=== PATIENT | male | born 1970 | race Caucasian/White ===

== ENCOUNTER 2017-05-13 10:31 | Emergency (ER) | payer OTHER ==
--- NOTE | 2017-05-13 11:09 | ED ---
General Adult HPI - General Chief complaint: Extremity Problem,Nontraumatic Stated complaint: Left foot swollen Time Seen by Provider: 05/13/17 10:40 Source: patient, RN notes reviewed Mode of arrival: ambulatory Limitations: no limitations - History of Present Illness Initial comments: Patient's a 46-year-old male who presents emergency room today with a chief complaint of pain to the left foot. This that is also swollen. She also missed a few days ago. Does admit that both in the back of his left heel. He does not that he had problems partial detail with Achilles tendon years ago and it reminded him of similar type pain. States he began using crutches. He states that is also noticed some pain down to the left great toe. He is worried that there is a family history of gout thoughts that this could be a possibility. Admits some pain to the arch of the left foot underneath. He denies any injury or any trauma or any other complaints or symptoms. Patient denies any recent fever, chills, shortness of breath, chest pain, back pain, abdominal pain, nausea or vomiting, numbness or tingling, dysuria or hematuria, constipation or diarrhea, headaches or visual changes, or any other complaints. - Related Data Home Medications Medication Instructions Recorded Confirmed Ibuprofen [Motrin] 800 mg PO Q6H PRN 05/13/17 05/13/17 Previous Rx's Medication Instructions Recorded Hydrocodone/Acetaminophen [Hardwick 1 each PO Q6HR PRN #10 tab 05/13/17 5-325] Allergies Allergy/AdvReac Type Severity Reaction Status Date / Time No Known Allergies Allergy Verified 05/13/17 10:41 Review of Systems ROS Statement: Those systems with pertinent positive or pertinent negative responses have been documented in the HPI. ROS Other: All systems not noted in ROS Statement are negative. Past Medical History Past Medical History: Atrial Fibrillation History of Any Multi-Drug Resistant Organisms: None Reported Past Surgical History: Hernia Repair Past Psychological History: No Psychological Hx Reported Smoking Status: Former smoker Past Alcohol Use History: Occasional Past Drug Use History: Marijuana General Exam - General Exam Comments Initial Comments: General: The patient is awake and alert, in no distress, and does not appear acutely ill. Neck: The neck is supple, there is no tenderness or JVD. Cardiovascular: There is a regular rate and rhythm. No murmur, rub or gallop is appreciated. Respiratory: Lungs are clear to auscultation, respirations are non-labored, breath sounds are equal. No wheezes, stridor, rales, or rhonchi. Musculoskeletal: Patient does have normal appearance of the left foot no signs swelling. No redness. No times the posterior aspect of the left Achilles. Negative Lopez's test. Sensations are intact pulses equal bilaterally 2+. Patient does have tenderness to the first digit of the left foot. There is no redness or swelling of refill less than 2 seconds. Mildly tender over the anterior aspect of left ankle. Strength 5/5. Neurological: A&O x 3. CN II-XII intact, There are no obvious motor or sensory deficits. Coordination appears grossly intact. Speech is normal. Skin: Skin is warm and dry and no rashes or lesions are noted. Psychiatric: Normal mood and affect. Limitations: no limitations Course Vital Signs 05/13/17 10:34 Temperature 97 F L Pulse Rate 88 Respiratory 16 Rate Blood Pressure 153/70 O2 Sat by Pulse 100 Oximetry Medical Decision Making - Medical Decision Making Case discussed in detail with attending physician Dr. Rodriguez. Patient reexamined at this time shows no signs of distress resting comfortably. No evidence of infection. Patient's x-rays negative. Uric acid 7.3. Patient advised to continue with his crutches and limit the use of the left ankle to follow-up the orthopedics in the next 2 days. Advised to continue ice elevate the affected area and use anti-inflammatories. Patient states had no relief the anti-inflammatories will be given a small prescription of pain medication go home with. Advised return for any other concerns. - Lab Data Lab Results 05/13/17 Range/Units 10:53 Uric Acid 7.3 (3.5-8.5) mg/dL Disposition Clinical Impression: Foot pain Disposition: HOME SELF-CARE Condition: Good Instructions: Arthralgia (ED) Additional Instructions: Please use medication as discussed. Please follow-up with orthopedic/family doctor in the next 2 days of symptoms have not improved. Please return to emergency room if the symptoms increase or worsen or for any other concerns. Prescriptions: Hydrocodone/Acetaminophen [Hardwick 5-325] 1 each PO Q6HR PRN #10 tab PRN Reason: Pain Referrals: Anh Yi MD [Primary Care Provider] - 1-2 days Zieger,Mohinder, MD [REFERRING] - 1-2 days Time of Disposition: 12:00
--- NOTE | 2017-05-13 11:10 | XR ---
EXAMINATION TYPE: XR foot complete LT DATE OF EXAM: 05/13/2017 COMPARISON: NONE HISTORY: 46-year-old male with left foot pain TECHNIQUE: 3 views FINDINGS: There is moderate midfoot soft tissue swelling. No acute fracture, subluxation, or dislocation is see n. Corticated ossific density projecting near the distal fibula suggests sequela of remote injury. IMPRESSION: Moderate midfoot soft tissue swelling. No acute osseous abnormality seen.
[2017-05-13 12:13] VITALS: BP 125/69; PULSE 89; RESP 18; TEMP 98.1
== END 2017-05-13 12:13 | disposition home or self-care (01) ==
LOC: EC 10:31
DX: M79.672 Pain in left foot (principal); M79.675 Pain in left toe(s); Z87.891 Personal history of nicotine dependence; Z82.69 Family history of other diseases of the musculoskeletal system and connective tissue
CPT/HCPCS: 36415; 84550; 99283

== ENCOUNTER → 2018-07-11 | Outpatient (CLI) | payer OTHER ==
--- NOTE | 2018-07-14 07:20 | MR ---
EXAMINATION TYPE: MR shoulder RT wo con DATE OF EXAM: 07/11/2018 COMPARISON: Outside radiographs 07/03/2018 HISTORY: 47-year-old male Right shoulder pain TECHNIQUE: Multiplanar, multisequence imaging of the right shoulder is performed without contrast. FINDINGS: There is focal fluid signal along the intracapsular portion of the long head biceps tendon. The extra capsular portion remains a peripherally situated along the bicipital groove. Heterogeneous signal of the subscapularis tendon with a small partial thickness tear of the superior third tendon fibers. The majority of the tendon remains intact. Mild/moderate degenerative joint space narrowing with marginal spurring at the acromioclavicular join t. There is subchondral marrow signal change. Heterogeneous signal of both the supraspinatus and infraspinatus tendons with mild thickening of the overlying subacromial/subdeltoid bursa and mild bursal sided fraying of the supraspinatus tendon and some undersurface articular sided fraying at the junction of the supraspinatus and infraspinatus tend ons. No high-grade partial or full-thickness tear. Reactive cystic change at the greater tuberosity. No atrophy of the rotator cuff musculature. Evaluation of the glenohumeral joint shows moderate diffuse irregular cartilage loss especially along the superior to mid humeral head articular surface where near full-thickness loss is present, for ex ample, refer to coronal images 12 through 14. There is a small joint effusion with a 1.2 x 1.6 cm loose body in the subcoracoid recess. There is a small tear of the superior posterior labrum extending from the biceps anchor with a tiny 4 mm paralabral cyst. Additional tears of the inferior glenoid with elongated paralabral cyst measurin g 5.8 x 1.5 mm and the second one measuring 8 mm. Prominent subchondral cystic change along the anter ior-inferior aspect of the glenoid. No Hill-Sachs deformity or os acromiale. Right marrow hyperplasia is present and can be seen in setti ng of anemia, obesity, smoking, and chronic disease. IMPRESSION: 1. Moderate overall glenohumeral joint osteoarthrosis. There are more severe areas of cartilage loss along the superior to mid humeral head, axial images 12 through 15. There is also a 1.5 cm loose body in the subcoracoid recess. 2. SLAP tear and interstitial tear extending into the intracapsular portion of the long head biceps t endon. Labral tear also involves the inferior aspect of the glenoid with small paralabral cysts. 3. Diffuse rotator cuff tendinosis with mild bursal sided fraying of the supraspinatus tendon and kwame e articular sided fraying at the junction of the supraspinatus and infraspinatus tendons. No high-gra de partial or full-thickness rotator cuff tear. 4. Small partial thickness tear of the superior most subscapularis tendon fibers. No rotator cuff mus carlos atrophy. 5. [id number] AC joint OA.
== END ==
LOC: RADMRIMAIN 06:58
PROVIDERS: ATTEND Orthopaedic Surgery
DX: M19.011 Primary osteoarthritis, right shoulder (principal); S43.431A Superior glenoid labrum lesion of right shoulder, initial encounter; M75.101 Unspecified rotator cuff tear or rupture of right shoulder, not specified as traumatic; S46.811A Strain of other muscles, fascia and tendons at shoulder and upper arm level, right arm, initial encounter

== ENCOUNTER → 2021-01-06 | Outpatient (CLI) | payer OTHER ==
--- NOTE | 2021-01-06 07:44 | US ---
EXAMINATION TYPE: US groin LT DATE OF EXAM: 01/06/2021 COMPARISON: NONE CLINICAL HISTORY: K40.91 Unilateral inguinal hernia. Patient had lt groin hernia at 11 yrs old with s urgical repair, he is having left groin pain with small palpable now, no injury Soft tissue scan of left groin with and without valsalva produces no obvious herniation. Two, normal appearing lymph nodes were seen at area of concern with the largest measuring 1.5 x 0.8 x 0.4cm IMPRESSION: No definite sonographic abnormality of the left groin. Clinical follow-up is recommended.
== END | disposition home or self-care (01) ==
LOC: RADUSWWP 06:57
PROVIDERS: ATTEND Family Medicine
DX: K40.91 Unilateral inguinal hernia, without obstruction or gangrene, recurrent (principal)

== ENCOUNTER → 2022-06-24 | Outpatient (CLI) | payer OTHER ==
--- NOTE | 2022-06-24 09:46 | CT ---
EXAMINATION TYPE: CT sinus w con DATE OF EXAM: 06/24/2022 COMPARISON: HISTORY: Chronic maxillary sinusitis. Pt also c/o palpable, growing bump LT side of nose, marked by Luana Craft. C/o ear ringing CT DLP: 558 mGycm Automated exposure control for dose reduction was used. CONTRAST: CT scan of the facial bones is performed with IV Contrast, patient injected with 70 mL of Isovue 300. TECHNIQUE: CT scan of the sinuses is performed without contrast, axial images are obtained, coronal r eformatted images are also reviewed. FINDINGS: There is an 8 mm vague density corresponding to the area of palpable abnormality adjacent a nterior margin of the left maxillary sinus. Somewhat nondescript. Hypoaeration aeration of the mastoid air cells compatible with chronic mastoiditis. There is evidence of mild mucosal thickening involving the ethmoid air cells, maxillary sinuses, sphenoid sinus, and f rontal sinus with no evidence of air-fluid levels. Ostiomeatal complexes patent bilaterally. Small mu cous retention cyst or polyp within the inferior right maxillary sinus. Nasal septal deviation. Intracranial structures are symmetric. Visualized parotid glands have a normal appearance. Oropharynx and nasopharynx symmetric. Orbits have a normal appearance. IMPRESSION: 1. Mild to moderate chronic pansinusitis. 2. Vague 8 mm soft tissue subcutaneous density corresponds to the area of palpable abnormality. Findi ngs could be postinflammatory. Small neoplastic nodule not entirely excluded. Correlation with short- term ultrasound obtained lesion changes in size. 3. Chronic mastoiditis.
== END | disposition home or self-care (01) ==
LOC: RADCTMAIN 08:44
PROVIDERS: ATTEND Internal Medicine
DX: J32.0 Chronic maxillary sinusitis (principal); J32.4 Chronic pansinusitis; H70.10 Chronic mastoiditis, unspecified ear
CPT/HCPCS: 70487; Q9967

== ENCOUNTER 2023-06-23 10:31 | Day surgery (SDC) | payer OTHER ==
[2023-06-15 15:56] VITALS: BMI 31.7
[~2023-06-23 10:31] MED LIST: LACTATED RINGERS 1,000 ML IV SCH
[2023-06-23 11:26] VITALS: TEMP 97.4
[2023-06-23] MEDS ORDERED: PROPOFOL 10 MG/ML 20 ML VIAL IV ONE (11:48)
--- NOTE | 2023-06-23 11:48 | P.GSHP ---
History of Present Illness H&P Date: 06/23/23 Chief Complaint: History of colon polyps This a 52-year-old male presents today for colonoscopy. Patient's. History of colon polyps. Past Medical History Past Medical History: Atrial Fibrillation, Hearing Disorder / Deafness Additional Past Medical History / Comment(s): "No problems with A-Fib in a long time". Joint pain. Difficulty urinating sometimes. Slight trouble hearing at times. History of Any Multi-Drug Resistant Organisms: None Reported Past Surgical History: Ear Surgery, Hernia Repair Additional Past Surgical History / Comment(s): Tubes in ears. Past Anesthesia/Blood Transfusion Reactions: No Reported Reaction Past Psychological History: No Psychological Hx Reported Smoking Status: Never smoker Past Alcohol Use History: None Reported Past Drug Use History: Marijuana Additional Drug Use History / Comment(s): Daily Marijuana use. Aware no use 24 hrs prior to procedure. - Past Family History Mother Family Medical History: Cancer Additional Family Medical History / Comment(s): Lung cancer. Medications and Allergies Home Medications Medication Instructions Recorded Confirmed Type No Known Home Medications 06/15/23 06/23/23 History Allergies Allergy/AdvReac Type Severity Reaction Status Date / Time No Known Allergies Allergy Verified 06/23/23 10:56 Surgical - Exam Vital Signs Temp Pulse Resp BP Pulse Ox 97.4 F L 75 14 139/94 98 06/23/23 11:01 06/23/23 11:01 06/23/23 11:01 06/23/23 11:01 06/23/23 11:01 - General well developed, well nourished, no distress - Eyes PERRL - ENT normal pinna - Neck no masses - Respiratory normal expansion - Cardiovascular Rhythm: regular - Abdomen Abdomen: soft, non tender Assessment and Plan Assessment: History of colon polyps. We'll perform colonoscopy.
--- NOTE | 2023-06-23 12:05 | P.OP ---
Date of Procedure: 06/23/23 Preoperative Diagnosis: History of colon polyps s Postoperative Diagnosis: Hemorrhoids Mild diverticulosis Procedure(s) Performed: Colonoscopy Anesthesia: MAC Surgeon: Jules Parnell Pathology: none sent Condition: stable Disposition: PACU Description of Procedure: The patient's placed on the endoscopy table in the lateral position. He received IV sedation. Digital rectal exam was performed. This revealed internal and external hemorrhoids. The flexible colonoscope was then placed patient anus and passed throughout the entire colon. The ileocecal valve was visualized. The cecum, ascending and transverse colon appeared normal. In the descending and sigmoid colon there is mild diverticular changes. The scope was then brought back the rectum and this appeared normal. Scope was withdrawn for patient and internal and external hemorrhoids are noted.
[2023-06-23 12:38] VITALS: BP 114/79; PULSE 80; RESP 20
== END 2023-06-23 13:19 | disposition home or self-care (01) ==
LOC: ORWHC2ENDO 10:31
PROVIDERS: ATTEND Surgery
DX: Z12.11 Encounter for screening for malignant neoplasm of colon (principal); K64.4 Residual hemorrhoidal skin tags; K57.30 Diverticulosis of large intestine without perforation or abscess without bleeding; I48.91 Unspecified atrial fibrillation; F12.90 Cannabis use, unspecified, uncomplicated; Z86.010 Personal history of colon polyps; Z98.890 Other specified postprocedural states
CPT/HCPCS: 45378; J2704

== ENCOUNTER → 2024-04-11 | Outpatient (CLI) | payer OTHER ==
--- NOTE | 2024-04-11 16:52 | US ---
EXAMINATION TYPE: US thyroid st tissue head/neck DATE OF EXAM: 04/11/2024 COMPARISON: NONE CLINICAL INDICATION: Male, 53 years old with history of R59.0 ENLARGED LYP NODES; left neck swelling TECHNIQUE: Grayscale and color Doppler imaging of the left neck FINDINGS/IMPRESSION: Several benign appearing lymph nodes left neck with largest measuring 1.0 x 0.4 x 0.6 cm. Likely reac tive. No organized fluid collection. [facility], , 04/11/2024 4:50 PM
== END | disposition home or self-care (01) ==
LOC: RADUSWWP 15:22
PROVIDERS: ATTEND Internal Medicine
DX: R59.0 Localized enlarged lymph nodes (principal)
CPT/HCPCS: 76536